=== PATIENT | female | born 1990 | race Caucasian/White ===

== ENCOUNTER 2017-04-09 20:53 | Emergency (ER) | payer OTHER ==
[~2017-04-09] VITALS: Ht 154.9 cm; Wt 105.0 kg
[~2017-04-09 20:53] MED LIST: CALC600T5 PO; FERR140T2 PO; PREN-39 PO
[2017-04-09 20:55] VITALS: Ht 154.9 cm; Wt 105.0 kg
[2017-04-09 22:49] LABS: BASOPHILS % 0.2 % (0.0-2.0); EOSINOPHILS # 0.1 10^3/ul (0.0-0.5); EOSINOPHILS % 0.9 % (0.0-7.0); HEMATOCRIT 38.7 % (37.0-47.0); HEMOGLOBIN 12.7 g/dl (12.0-16.0); LYMPHOCYTES # 2.6 10^3/ul (0.8-2.9); LYMPHOCYTES % 27.5 % (15.0-51.0); MEAN CORPUSCULAR HEMOGLOBIN 28.5 pg (29.0-33.0); MEAN CORPUSCULAR HGB CONC 32.8 g/dl (32.0-37.0); MEAN CORPUSCULAR VOLUME 86.8 fl (82.0-101.0); MEAN PLATELET VOLUME 9.8 fl (7.4-10.4); MONOCYTE # 0.4 10^3/ul (0.3-0.9); MONOCYTES % 4.6 % (0.0-11.0); NEUTROPHIL # 6.2 10^3/ul (1.6-7.5); NEUTROPHILS % 66.5 % (39.0-77.0); PLATELET COUNT 268 10^3/UL (140-415); RED BLOOD COUNT 4.46 10^6/ul (4.20-5.40); RED CELL DISTRIBUTION WIDTH 13.8 % (11.5-14.5); WHITE BLOOD COUNT 9.3 10^3/ul (4.8-10.8)
[2017-04-09 23:09] LABS: ADD UMIC YES; UR ASCORBIC ACID NEGATIVE (NEGATIVE); UR BACTERIA FEW /HPF (NONE SEEN); UR BILIRUBIN (Dip) NEGATIVE (NEGATIVE); UR BLOOD (Dip) NEGATIVE (NEGATIVE); UR CLARITY CLEAR (CLEAR); UR COLOR YELLOW (YELLOW); UR GLUCOSE (Dip) NEGATIVE (NEGATIVE); UR KETONES (Dip) NEGATIVE (NEGATIVE); UR LEUKOCYTE ESTERASE (Dip) TRACE Leu/ul (NEGATIVE); UR NITRITE (Dip) NEGATIVE (NEGATIVE); UR RBC 1 /HPF (0-5); UR SPECIFIC GRAVITY (Dip) 1.021 (1.003-1.030); UR TOTAL PROTEIN (Dip) NEGATIVE (NEGATIVE); UR UROBILINOGEN (Dip) NEGATIVE (NEGATIVE)
[2017-04-10] MEDS ORDERED: PRENAT PO (00:01)
--- NOTE | 2017-04-10 00:03 | ERD ---
ER Documentation Chief Complaint Date/Time DATE: 04/10/17 TIME: 00:01 Chief Complaint c/o right sided pelvic pain. (+) . Hx of ectopic. HPI 26-year-old female presents with approximately 4 weeks by dates. She has a history of ectopic is concerned about some right lower abdominal pain and low back pain over the last few days. She denies any fevers , vomiting, vaginal bleeding. She is a G4 para 2. ROS All systems reviewed and are negative except as per history of present illness. Medications Home Meds Active Scripts Multivit/Min/Fol Ac/Iron/Pren* ( S*) 1 Tab Tab, 1 TAB PO DAILY, #90 TAB Prov:USHA DIAMOND MD 04/10/17 Reported Medications Calcium Carbonate (CALCIUM) 600 Mg Tablet, 600 MG PO DAILY 05/26/13 Ferrous Sulfate* (Ferrous Sulfate*) 140 Mg Tablet.er, 140 MG PO DAILY 05/26/13 Vits W-Ca,Fe,Fa(<1MG) ( Vitamins) 1 Tab Tablet, 1 TAB PO DAILY 05/26/13 Allergies Allergies: Coded Allergies: No Known Allergy (Unverified , 09/26/14) PMhx/Soc History of Surgery: Yes () Anesthesia Reaction: No Hx Neurological Disorder: No Hx Respiratory Disorders: No Hx Cardiac Disorders: No Hx Psychiatric Problems: No Hx Miscellaneous Medical Probl: No Hx Alcohol Use: No Hx Substance Use: No Hx Tobacco Use: No Smoking Status: Never smoker Physical Exam Vitals Vital Signs Date Time Temp Pulse Resp B/P Pulse Ox O2 Delivery O2 Flow Rate FiO2 04/09/17 20:55 98.5 86 20 133/61 96 Physical Exam Const: [] Letter, [id number]. Head: Atraumatic Eyes: Normal Conjunctiva ENT: Normal External Ears, Nose and Mouth. Neck: Full range of motion..~ No meningismus. Resp: Clear to auscultation bilaterally Cardio: Regular rate and rhythm, no murmurs Abd: Soft, minimal lower abdominal tenderness primarily on the right. No exquisite tenderness at McBurney's point no Cherry sign and no rebound. non distended. Normal bowel sounds Skin: No petechiae or rashes Back: No midline or flank tenderness Ext: No cyanosis, or edema Neur: Awake and alert Psych: Normal Mood and Affect Result Diagram: 04/09/17 2231 Results 24 hrs Laboratory Tests Test 04/09/17 22:31 04/09/17 22:35 White Blood Count 9.310^3/ul Red Blood Count 4.4610^6/ul Hemoglobin 12.7g/dl Hematocrit 38.7% Mean Corpuscular Volume 86.8fl Mean Corpuscular Hemoglobin 28.5pg Mean Corpuscular Hemoglobin Concent 32.8g/dl Red Cell Distribution Width 13.8% Platelet Count 08465^3/UL Mean Platelet Volume 9.8fl Neutrophils % 66.5% Lymphocytes % 27.5% Monocytes % 4.6% Eosinophils % 0.9% Basophils % 0.2% Nucleated Red Blood Cells % 0.0/100WBC Neutrophils # 6.210^3/ul Lymphocytes # 2.610^3/ul Monocytes # 0.410^3/ul Eosinophils # 0.110^3/ul Basophils # 0.010^3/ul Nucleated Red Blood Cells # 0.010^3/ul Beta HCG, Quantitative 1961.9mIU/ml Urine Color YELLOW Urine Clarity CLEAR Urine pH 5.0 Urine Specific [place] 1.021 Urine Ketones NEGATIVEmg/dL Urine Nitrite NEGATIVEmg/dL Urine Bilirubin NEGATIVEmg/dL Urine Urobilinogen NEGATIVEmg/dL Urine Leukocyte Esterase TRACELeu/ul Urine Microscopic RBC 1/HPF Urine Microscopic WBC 3/HPF Urine Bacteria FEW/HPF Urine Hemoglobin NEGATIVEmg/dL Urine Glucose NEGATIVEmg/dL Urine Total Protein NEGATIVEmg/dl Procedures/MDM This is normal. Patient is Rh+. Quantitative hCG is 1961. Pelvic ultrasound shows approximately 5 week intrauterine gestational sac without visible yolk sac or pole. Right ovary is not visualized and left adnexa shows flow. Patient was stable throughout ED course. Patient presents with right lower pelvic pain of uncertain etiology of early . Differential includes early normal , ectopic threatened miscarriage. Current signs or symptoms do not suggest appendicitis, PID, tubo-ovarian abscess. Patient will be advised to have a repeat quantitative hCG and possible ultrasound in 48 hours. She should otherwise recheck sooner for fevers, vomiting, new worsening symptoms. Departure Diagnosis: Primary Impression: Pelvic pain complicating Condition: Stable Patient Instructions: Abdominal Pain, Early Additional Instructions: There is a sac seen in the correct location on the ultrasound. Unable to see complete . Recommend repeat hormone check in 48 hours. Recheck otherwise for new or worsening symptoms such as fevers. USHA DIAMOND MD Apr 10, 2017 00:03
--- NOTE | 2017-04-10 00:14 | RADRPT ---
PROCEDURE: Ultrasound of the pelvis. CLINICAL INDICATION: Pain. TECHNIQUE: Transabdominal and transvaginal ultrasound of the pelvis was performed. COMPARISON: There are no similar studies submitted for comparison. FINDINGS: LAST MENSTRUAL PERIOD: 03/11/2017 UTERUS and GESTATIONAL SAC Uterus: There is a single intrauterine gestational sac. Mean gestational sac diameter: 0.37 cm; estimated gestational age 5 weeks 0 days. Yolk sac: Not definitely seen. heart motion: Not definitely seen. Subchorionic hemorrhage: None. OVARIES Right ovary: Not definitely seen. Findings: There are no definite adnexal masses. Left ovary: 3.5 x 2.1 x 2.8 cm Findings: There is Doppler flow to the left ovary.There is no ovarian lesion or cyst. Cul-de-sac: No free fluid. IMPRESSION: Early intrauterine gestational sac of approximately 5 weeks 0 days. Continued follow-up and serial b eta HCGs are recommended. RPTAT: HIKT .Jerome Sterling MD, MD Date Time Electronically viewed and signed by .Jerome Sterling MD, on 04/10/2017 00:13 .T/
== END 2017-04-10 00:33 | disposition home or self-care (01) ==
LOC: FTE 20:53
DX: O26.891 Other specified pregnancy related conditions, first trimester (principal); R10.2 Pelvic and perineal pain; Z3A.01 Less than 8 weeks gestation of pregnancy
CPT/HCPCS: 36415; 76801; 76817; 81001; 84702; 85025; 86900; 86901; Z7502

== ENCOUNTER 2017-11-19 17:22 | Outpatient (CLI) | END 2017-11-19 21:15 | disposition home or self-care (01) ==

== ENCOUNTER 2017-12-24 17:34 | Emergency (ER) | END 2017-12-24 22:24 | disposition home or self-care (01) ==